=== PATIENT | female | born 1955 | race Caucasian/White ===

== ENCOUNTER 2016-05-03 20:04 | Emergency (ER) | payer BC ==
[~2016-05-03 20:04] MED LIST: ACID1TAB14 PO; ALBU2.5V13 NEB; AMIT50TA PO; ATOR10TA PO; CETI10TA16 PO; CETI10TA22 PO; DIPH1TAB PO; ESTR42.53 VG; EXEN2VIA SQ; FERR325T58 PO; FLUT1DIS3 IH; FOSF3PAC PO; LISI40TA PO; METF10002 PO; MONT10TA6 PO; MULT1TAB52 PO; OMEP40CA5 PO; PROAIR HFA8.5 GM IH; PROAIR HFA8.5 GM INH
[2016-05-03 20:37] VITALS: BP 147/62
[2016-05-03] MEDS ORDERED: PRED50TA PO (21:11)
--- NOTE | 2016-05-03 21:11 | PHYS DOC ---
Past Medical History Past Medical History: Asthma, Diabetes-Type II, High Cholesterol, Hypertension , UTI, Other Additional Past Medical Histor: interstitial cystitis Past Surgical History: Appendectomy, Hysterectomy, Tonsillectomy, Other Additional Past Surgical Histo: Bowel resection Alcohol Use: None Drug Use: None Adult General Chief Complaint Chief Complaint: COUGH HPI HPI Patient is a 60 year old female with complaint of nonproductive cough is been progressive in nature for the past 3 days. Patient denies any fevers or chills. She denies any ill contacts. She denies any hospitalizations, antibiotic use or foreign travel within the past 90 days. Patient states that she is a diabetic. She states that she has been having no problems with her blood sugar control at this point. Steroids to help as she often develops bronchitis after an upper respiratory infection. She states that she does have a nebulizer at home which she uses as she does have an established history of asthma as well. Review of Systems Review of Systems Constitutional: Denies fever or chills [] Eyes: Denies change in visual acuity, redness, or eye pain [] HENT: Denies nasal congestion or sore throat [] Respiratory: Denies cough or shortness of breath [] Cardiovascular: No additional information not addressed in HPI [] GI: Denies abdominal pain, nausea, vomiting, bloody stools or diarrhea [] : Denies dysuria or hematuria [] Musculoskeletal: Denies back pain or joint pain [] Integument: Denies rash or skin lesions [] Neurologic: Denies headache, focal weakness or sensory changes [] Endocrine: Denies polyuria or polydipsia [] Allergies Allergies Allergies Coded Allergies Type Severity Reaction Last Updated Verified I S O L A T I O N *CONTACT* Allergy Unknown 03/06/15 Yes No Known Medication Allergies Allergy Unknown 03/06/15 Yes Physical Exam Physical Exam Constitutional: Well developed, well nourished, no acute distress, non-toxic appearance. [] HENT: Normocephalic, atraumatic, bilateral external ears normal, oropharynx moist, no oral exudates. Scant amount of clear rhinorrhea with boggy nasal mucosa. Eyes: PERRLA, EOMI, conjunctiva normal, no discharge. [] Neck: Normal range of motion, no tenderness, supple, no stridor. [] Cardiovascular:Heart rate regular rhythm, no murmur [] Lungs & Thorax: Patient represents no respiratory distress respiratory fatigue. Patient has full chest excursion with deep inspiration. There is no sensory muscle use. Lungs are clear to auscultation bilaterally. Abdomen: Bowel sounds normal, soft, no tenderness, no masses, no pulsatile masses. [] Skin: Warm, dry, no erythema, no rash. [] Back: No tenderness, no CVA tenderness. [] Extremities: No tenderness, no cyanosis, no clubbing, ROM intact, no edema. [] Neurologic: Alert and oriented X 3, normal motor function, normal sensory function, no focal deficits noted. [] Psychologic: Affect normal, judgement normal, mood normal. [] Current Patient Data Vital Signs Vital Signs Date Time Temp Pulse Resp B/P Pulse Ox O2 Delivery O2 Flow Rate FiO2 05/03/16 20:37 98.3 99 20 100 Room Air 98.3 EKG EKG [] Radiology/Procedures Radiology/Procedures [] Course & Med Decision Making Course & Med Decision Making Pertinent Labs and Imaging studies reviewed. (See chart for details) [] Dragon Disclaimer Dragon Disclaimer This electronic medical record was generated, in whole or in part, using a voice recognition dictation system. Departure Departure Impression: Primary Impression: Upper respiratory infection Disposition: 01 HOME, SELF-CARE Condition: GOOD Referrals: [facility] (PCP) Patient Instructions: Upper Respiratory Infection, Adult, [id number] Additional Instructions: 1. Take the medication as prescribed. 2. Use your nebulizer at home as needed to for shortness of breath and chest tightness. 3. Call your primary care doctor in the morning to schedule follow-up appointment. 4. Please review the discharge instructions for reasons to return to the emergency department. Scripts Prednisone 50 Mg [id number] Mg PO DAILY 5 Days Prov:JEFE HUTCHINS 05/03/16 JEFE HUTCHINS May 03, 2016 21:11
== END 2016-05-03 21:19 | disposition home or self-care (01) ==
LOC: ER 20:04
DX: J06.9 Acute upper respiratory infection, unspecified (principal); J45.909 Unspecified asthma, uncomplicated; E11.9 Type 2 diabetes mellitus without complications; E78.00 Pure hypercholesterolemia, unspecified; I10 Essential (primary) hypertension; Z91.041 Radiographic dye allergy status
CPT/HCPCS: 99283

== ENCOUNTER → 2016-05-21 | Outpatient (CLI) | payer BC ==
[2016-05-03 20:37] VITALS: BP 147/62
[~2016-05-21] MED LIST changes: +IOHEXOL 180 MG/ML 10 ML VIAL. ONE; +PRED50TA PO; +TIZA4TAB PO; +methylPREDNISolone ACETATE 40 MG/ML VIAL. ONE; +methylPREDNISolone ACETATE 80 MG/ML VIAL. ONE
--- NOTE | 2016-05-21 23:44 | PAIN ---
DATE OF SERVICE: 05/21/2016 DIAGNOSES: Lumbar radiculopathy with lumbar degenerative disk disease and lumbar spinal stenosis. HISTORY OF PRESENT ILLNESS: This is a 60-year-old female who returns for followup status post lumbar epidural steroid injections x 3, last seen in January 2016. The patient did very well with this, with about 90% improvement initially and overall about 50% improvement group home. The patient reports that she is still doing well, good 50% improvement with the pain is returning to some extent in the low back and right lower extremity as it was previously. The patient reports it comes and goes, is dull, aching with sharp pains occasionally with radiating pain in the right posterior lateral thigh, lateral anterior thigh and in the posterior lower leg on the right side as well as across the low back. 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 The patient reports she is sleeping well at night without significant sleep interruption from the pain. The patient reports no new motor or sensory deficits, no new bowel or bladder incontinence or other complaints. PHYSICAL EXAMINATION: VITAL SIGNS: Today, the patient's blood pressure is 111/65, pulse 94, respirations 20, temperature 97.9 degrees Fahrenheit, weight is 204 pounds. GENERAL: The patient is awake, alert, oriented, appropriate, very pleasant demeanor. HEENT: Shows normocephalic, atraumatic. Extraocular movements are intact and symmetrical. The patient wears eye glasses. Oral cavity, mucous membranes are moist and pink. Dentition is intact. NECK: Shows anterior throat supple without palpable lymphadenopathy noted. Swallow reflex is symmetrical. Neck shows full rotational motion of the cervical spine without difficulty. CHEST: Shows normal on inspection. Breath sounds are clear to auscultation bilaterally. HEART: Shows S1 and S2 clear. ABDOMEN: Soft, nontender, nondistended. No palpable organomegaly is noted. BACK: Shows spine grossly midline. Lumbar paraspinous musculature shows some moderate tenderness to palpation, but only in the inferior aspect of the lumbar paraspinous muscles diffusely and appears roughly symmetrical without evidence of atrophy or hypertrophy. No tenderness over the spinous processes. No tenderness over the sacrum or sacroiliac regions. The patient shows good rotational motion of lumbar spine, both laterally greater than 10 degrees right and left as well as extension greater than 10 degrees, forward flexion to 45 degrees without difficulty. EXTREMITIES: The patient's lower extremities showed deep tendon reflexes at 2+ in the patellar tendons, 1+ tendo calcaneus tendons are equal. Motor exam is strong with 5/5 dorsiflexion, extension, quadriceps and hamstring flexion and symmetrical. Options were discussed with the patient and the patient's old chart was reviewed as her current medication regimen updated. Current review of systems updated today as well. We will plan on a lumbar epidural steroid injection today. She has done very well with these in the past as the first in this series with fluoroscopic guidance. Risks were again discussed including, but not limited to bleeding, infection, possibility of epidural hematoma, subsequent neurologic compromise, dural puncture, headaches, spinal cord and/or nerve damage, side effects of steroid medication and poor results regarding pain control. The patient understands and wishes to proceed. The patient will return to clinic in approximately 2 weeks for followup, was counseled on return appointment, activity level and side effects to be aware of. The patient was also given tizanidine prescription as she does well with this muscle relaxer with instructions, side effects to be aware of discussed as well. DIAGNOSIS: Lumbar radiculopathy with lumbar spinal stenosis, lumbar degenerative disk disease. PROCEDURE: Lumbar epidural steroid injection in translaminar approach at L4-L5 level using C-arm fluoroscopic guidance under sterile prep and drape using local anesthetic. Medications injected 120 mg Depo-Medrol plus 10 mL of preservative-free normal saline and 2 mL of Isovue for contrast. Condition at discharge is stable. The patient tolerated the procedure well, had no complications. AMERICA ELAM MD DR: MYRA/oxana JOB#: [id number] / [id number]
== END ==
LOC: PNCL 08:27
PROVIDERS: ATTEND Anesthesiology
DX: M51.16 Intervertebral disc disorders with radiculopathy, lumbar region (principal); M48.06 Spinal stenosis, lumbar region
CPT/HCPCS: 62323; J1030; J1040

== ENCOUNTER 2016-10-09 02:03 | Emergency (ER) | payer BC ==
[~2016-10-09] VITALS: Ht 170.2 cm; Wt 99.8 kg
[2016-10-09 02:03] VITALS: BP 126/56
[~2016-10-09 02:03] MED LIST changes: -ALBU2.5V13 NEB; +ALBU2.5V14 NEB; -IOHEXOL 180 MG/ML 10 ML VIAL. ONE; +METF-620 PO; -METF10002 PO; -methylPREDNISolone ACETATE 40 MG/ML VIAL. ONE; -methylPREDNISolone ACETATE 80 MG/ML VIAL. ONE
[2016-10-09 02:30] LABS: BILIRUBIN,URINE NEGATIVE (NEG); GLUCOSE,URINE NEGATIVE (NEG); NITRITE,URINE NEGATIVE (NEG); PH,URINE 5.5; PROTEIN,URINE 30 mg/dL (NEG-TRACE); UROBILINOGEN,URINE 0.2 mg/dL (0.2 mg/dL)
[2016-10-09] MEDS ORDERED: IV NORMAL SALINE 1000ML BAG 1,000 ML IV ONE (02:30)
[2016-10-09 02:35] LABS: BACTERIA,URINE FEW /HPF (0-FEW); RBC,URINE OCC /HPF (0-2); SQUAMOUS EPITHELIAL CELL,UR MOD /LPF
[2016-10-09 02:42] LABS: BASO # 0.1 x10^3/uL (0.0-0.2); BASO % 1 % (0-3); EOS % 9 % (0-3); HEMATOCRIT 29.4 % (36.0-47.0); HEMOGLOBIN 9.2 g/dL (12.0-15.5); LYMPH % 22 % (24-48); MEAN CORPUSCULAR HEMOGLOBIN 24 pg (25-35); MEAN CORPUSCULAR HGB CONC 31 g/dL (31-37); MEAN CORPUSCULAR VOLUME 77 fL (79-100); MONO % 11 % (0-9); NEUT % 58 % (31-73); PLATELET COUNT 328 x10^3/uL (140-400); RED CELL DISTRIBUTION WIDTH 15.9 % (11.5-14.5); WHITE BLOOD COUNT 9.1 x10^3/uL (4.0-11.0)
[2016-10-09 02:53] LABS: CALCIUM 8.6 mg/dL (8.5-10.1); CREATININE 1.7 mg/dL (0.6-1.0); GFR 30.7
[2016-10-09 03:02] LABS: ALBUMIN 3.7 g/dL (3.4-5.0); DIRECT BILIRUBIN 0.1 mg/dL (0.0-0.2); TOTAL BILIRUBIN 0.2 mg/dL (0.2-1.0); TOTAL PROTEIN 7.1 g/dL (6.4-8.2)
[2016-10-09] MEDS ORDERED: LOPE2CAP PO (03:29)
--- NOTE | 2016-10-09 03:29 | PHYS DOC ---
Past Medical History Past Medical History: Asthma, Diabetes-Type II, High Cholesterol, Hypertension , UTI, Other Additional Past Medical Histor: interstitial cystitis Past Surgical History: Appendectomy, Hysterectomy, Tonsillectomy, Other Additional Past Surgical Histo: Bowel resection Alcohol Use: None Drug Use: None Adult General Chief Complaint Chief Complaint: DIARRHEA HPI HPI 61-year-old female presenting to the emergency department today with diarrhea. She also reports having cramps in her thigh and her legs. Her diarrhea is been present for the last few days. She started eating sugar-free/sugar substitute foods recently and feels that this is likely a strong contributor. She reports this to be an acute on chronic problem where she has intermittent diarrhea. She denies abdominal pain nausea vomiting fevers or chills. She denies blood in her stool. Review of systems is negative for chest pain shortness of breath. Negative for nausea or vomiting. All other review of systems is negative unless otherwise noted in history of present illness. Pertinent physical exam findings: Abdomen is soft and nontender. Otherwise unremarkable exam. ED course: 61-year-old female presenting to the emergency department today with watery diarrhea. Patient was mildly tachycardic likely secondary to dehydration. She was given 1 L of normal saline in the ER. Labs were obtained which showed a chronic anemia. She did have a mild acute kidney injury prerenal. Likely secondary to dehydration. She was able to tolerate oral intake in the emergency department. I recommended she push fluids at home and I prescribed her loperamide for diarrhea control. I recommended she stay off the sugar substitute foods until her diarrhea resolves. The patient was then discharged home in stable condition to follow up with their primary care physician over the next 2-3 days. They were to return if their symptoms worsened or if they were concerned for any reason. [id number] discharge instructions and return precautions were given. Patient's questions were answered to their satisfaction. Patient is comfortable plan. Review of Systems Review of Systems SEE ABOVE. Current Medications Current Medications Current Medications Medications (Trade) Dose Ordered Sig/Danny Start Time Stop Time Status Last Admin Dose Admin Sodium Chloride 1,000 ml @ 1,000 mls/hr 1X ONCE 10/09/16 02:30 10/09/16 03:29 DC 10/09/16 02:27 1,000 MLS/HR Allergies Allergies Allergies Coded Allergies Type Severity Reaction Last Updated Verified I S O L A T I O N *CONTACT* Allergy Unknown 03/06/15 Yes No Known Medication Allergies Allergy Unknown 03/06/15 Yes Physical Exam Physical Exam Constitutional: Well developed, well nourished, no acute distress, non-toxic appearance. [] HENT: Normocephalic, atraumatic, bilateral external ears normal, oropharynx moist, no oral exudates, nose normal. [] Eyes: PERRLA, EOMI, conjunctiva normal, no discharge. [] Neck: Normal range of motion, no tenderness, supple, no stridor. [] Cardiovascular:Heart rate regular rhythm, no murmur [] Lungs & Thorax: Bilateral breath sounds clear to auscultation [] Abdomen: Bowel sounds normal, soft, no tenderness, no masses, no pulsatile masses. [] Skin: Warm, dry, no erythema, no rash. [] Back: No tenderness, no CVA tenderness. [] Extremities: No tenderness, no cyanosis, no clubbing, ROM intact, no edema. [] Neurologic: Alert and oriented X 3, normal motor function, normal sensory function, no focal deficits noted. [] Psychologic: Affect normal, judgement normal, mood normal. [] Current Patient Data Vital Signs Vital Signs Date Time Temp Pulse Resp B/P (MAP) Pulse Ox O2 Delivery O2 Flow Rate FiO2 10/09/16 02:03 98.0 96 20 126/56 (79) 95 Room Air 98.0 Lab Values Laboratory Tests Test 10/09/16 02:24 10/09/16 02:35 Urine Collection Type Unknown Urine Color Yellow Urine Clarity Cloudy Urine pH 5.5 Urine Specific [place] 1.020 Urine Protein 30 mg/dL (NEG-TRACE) Urine Glucose (UA) Negative mg/dL (NEG) Urine Ketones (Stick) Negative mg/dL (NEG) Urine Blood Negative (NEG) Urine Nitrite Negative (NEG) Urine Bilirubin Negative (NEG) Urine Urobilinogen Dipstick 0.2 mg/dL (0.2 mg/dL) Urine Leukocyte Esterase Negative (NEG) Urine RBC Occ /HPF (0-2) Urine WBC 5-10 /HPF (0-4) Urine Squamous Epithelial Cells Mod /LPF Urine Bacteria Few /HPF (0-FEW) Urine Mucus Marked /LPF White Blood Count 9.1 x10^3/uL (4.0-11.0) Red Blood Count 3.80 x10^6/uL (3.50-5.40) Hemoglobin 9.2 g/dL (12.0-15.5) L Hematocrit 29.4 % (36.0-47.0) L Mean Corpuscular Volume 77 fL (79-100) L Mean Corpuscular Hemoglobin 24 pg (25-35) L Mean Corpuscular Hemoglobin Concent 31 g/dL (31-37) Red Cell Distribution Width 15.9 % (11.5-14.5) H Platelet Count 328 x10^3/uL (140-400) Neutrophils (%) (Auto) 58 % (31-73) Lymphocytes (%) (Auto) 22 % (24-48) L Monocytes (%) (Auto) 11 % (0-9) H Eosinophils (%) (Auto) 9 % (0-3) H Basophils (%) (Auto) 1 % (0-3) Neutrophils # (Auto) 5.2 x10^3uL (1.8-7.7) Lymphocytes # (Auto) 2.0 x10^3/uL (1.0-4.8) Monocytes # (Auto) 1.0 x10^3/uL (0.0-1.1) Eosinophils # (Auto) 0.8 x10^3/uL (0.0-0.7) H Basophils # (Auto) 0.1 x10^3/uL (0.0-0.2) Sodium Level 142 mmol/L (136-145) Potassium Level 4.0 mmol/L (3.5-5.1) Chloride Level 107 mmol/L (98-107) Carbon Dioxide Level 24 mmol/L (21-32) Anion Gap 11 (6-14) Blood Urea Nitrogen 32 mg/dL (7-20) H Creatinine 1.7 mg/dL (0.6-1.0) H Estimated GFR (Cockcroft-Gault) 30.7 Glucose Level 104 mg/dL (70-99) H Calcium Level 8.6 mg/dL (8.5-10.1) Total Bilirubin 0.2 mg/dL (0.2-1.0) Direct Bilirubin 0.1 mg/dL (0.0-0.2) Aspartate Amino Transferase (AST) 17 U/L (15-37) Alanine Aminotransferase (ALT) 29 U/L (14-59) Alkaline Phosphatase 101 U/L (46-116) Total Protein 7.1 g/dL (6.4-8.2) Albumin 3.7 g/dL (3.4-5.0) Lipase 278 U/L (73-393) Laboratory Tests 10/09/16 02:35 Laboratory Tests 10/09/16 02:35 EKG EKG [] Radiology/Procedures Radiology/Procedures [] Course & Med Decision Making Course & Med Decision Making Pertinent Labs and Imaging studies reviewed. (See chart for details) [] Dragon Disclaimer Dragon Disclaimer This electronic medical record was generated, in whole or in part, using a voice recognition dictation system. Departure Departure Impression: Primary Impression: Diarrhea Additional Impression: JOE (acute kidney injury) Disposition: HOME, SELF-CARE Condition: STABLE Referrals: [facility] (PCP) Patient Instructions: Acute Kidney Injury, Diarrhea Additional Instructions: Thank you for allowing us to participate in your care today. Be sure to drink lots of water. take the diarrhea medication as needed. Followup with your primary care physician in 3 days if your symptoms do not improve. If you do not have a primary care provider you can ask for a list of our primary care providers. Return to the emergency department you have any new or concerning findings. This should be evaluated by the primary care physician and any necessary consulting services for continued management within a few days after discharge. Return to emergency room if you have any new or concerning symptoms including but not limited to fever, chills, nausea, vomiting, intractable pain, any new rashes, chest pain, shortness of air, uncontrolled bleeding, difficulty breathing, and/or vision loss. Scripts Loperamide Hcl (LOPERAMIDE) 2 Mg Capsule 2 MG PO PRN BID Y for DIARRHEA, #5 Be careful, this medication may cause you to be tired or drowsy. Do not drive on this medication. It may cause you to be tired as well. Prov: CHRISTIE WELCH MD 10/09/16 Problem Qualifiers CHRISTIE WELCH MD Oct 09, 2016 03:29
== END 2016-10-09 04:08 | disposition home or self-care (01) ==
LOC: ER 02:03
DX: R19.7 Diarrhea, unspecified (principal); N17.9 Acute kidney failure, unspecified; D53.9 Nutritional anemia, unspecified; R25.2 Cramp and spasm; E86.0 Dehydration; J45.909 Unspecified asthma, uncomplicated; E11.9 Type 2 diabetes mellitus without complications; E78.00 Pure hypercholesterolemia, unspecified; I10 Essential (primary) hypertension; Z87.440 Personal history of urinary (tract) infections; Z90.49 Acquired absence of other specified parts of digestive tract; Z90.710 Acquired absence of both cervix and uterus; Z90.89 Acquired absence of other organs; Z91.041 Radiographic dye allergy status
CPT/HCPCS: 36415; 80048; 80076; 81001; 83690; 85027; 87086; 96360; 96361; 99285; J7030

== ENCOUNTER → 2016-12-01 | Outpatient (CLI) | payer BC ==
[~2016-12-01] MED LIST changes: +LOPE2CAP PO
--- NOTE | 2016-12-01 09:59 | PAIN ---
DATE OF SERVICE: 12/01/2016 PROGRESS NOTE FOR PAIN CLINIC DIAGNOSES: Lumbar radiculopathy with lumbar degenerative disk disease and lumbar spinal stenosis. HISTORY OF PRESENT ILLNESS: The patient is a 61-year-old female who returns for followup status post lumbar epidural steroid injection, last seen 05/21/2016. The patient had injections last fall as well and last summer. The patient reports she did very well with 98% improvement. The pain has been fairly well today. She is having some pain in the low back and right lower extremity, again radiating to the right posterior lateral and anterior thigh into the lower leg medial aspect and posterior aspect of the right leg. Rates 8 on a scale of 10 as its worst. The patient reports that the Zanaflex she is taking, however, controls the pain almost completely. She has been taking it just at night, but has been doing very well with this regimen. The patient reports that she has been trying to increase her activity, stretching and strengthening. Reports the pain is becoming a little more noticeable, but very well controlled. She is out of her Zanaflex, which we prescribed for her in May and would like to continue with this as she does very well with it. The patient reports her pain is 8 on a scale of 10, it is burning, cramping, sharp, on and off and radiating into the right leg as noted, but not consistently. The patient reports she sleeps well at night. It does not awake her from sleep, better with sitting or lying, but walking is what really bothers her low back and her right leg. The patient reports no new motor or sensory deficits, no new bowel or bladder incontinence. PHYSICAL EXAMINATION: VITAL SIGNS: The patient's blood pressure is 143/80, pulse 98, respirations 18, temperature 98.2 degrees Fahrenheit, height is 5 feet 7 inches, weight is 120 pounds. GENERAL: The patient is awake, alert, oriented, appropriate, very pleasant demeanor. HEENT: Head shows normocephalic, atraumatic. Extraocular movements are intact, symmetrical. Oral cavity, mucous membranes are moist and pink. NECK: Shows anterior throat supple. CHEST: Shows breath sounds clear to auscultation bilaterally. HEART: Shows S1 and S2 clear. No murmurs auscultated. ABDOMEN: Obese, soft, nontender, nondistended. No palpable organomegaly is noted. No rebound or guarding. BACK: Shows spine grossly in the midline. Lumbar paraspinous musculature shows some moderate tenderness with palpation, but is symmetrical on inspection. No radiation of pain, no tenderness over the sacrum or sacroiliac regions. The patient shows good rotation and motion both laterally as well as extension and flexion without difficulty or pain reported. EXTREMITIES: Lower extremities show deep tendon reflexes 2+ in the patellar tendons, 1+ tendo calcaneus tendons are equal. Motor exam is strong with 5/5 dorsiflexion, extension, quadriceps and hamstring flexion and symmetrical. Options were discussed with the patient at this time. The patient's old chart was reviewed as her current medication regimen updated. Current review of systems updated today as well. We will refill the patient's Zanaflex with instructions, side effects to be aware of discussed. Also, the patient will increase her activity. We also discussed water therapy as she has access to a swimming pool at her daughter's house and will start using this as well. We discussed some physical therapy regimens to do in the water itself. She will try this as well. We discussed also if the pain becomes worse or not well controlled with the Zanaflex as it currently is, to contact our office and we will look into this further, perhaps do a new MRI scan as hers is over a year old now and does have a significant cyst at the L4-5 level with impingement on the right L5 nerve root, to see if this has gotten worse as well. We will dictate this with symptoms and the patient will follow up at this time on as needed basis. The patient was given instruction as well as side effects to be aware of with the medication. AMERICA ELAM MD DR: MYRA/oxana JOB#: [id number] / [id number]
== END | disposition home or self-care (01) ==
LOC: PNCL 07:38
PROVIDERS: ATTEND Anesthesiology
DX: M54.16 Radiculopathy, lumbar region (principal); M48.06 Spinal stenosis, lumbar region; M51.36 Other intervertebral disc degeneration, lumbar region
CPT/HCPCS: 99212

== ENCOUNTER → 2017-04-20 | Outpatient (CLI) | payer BC ==
[2017-03-07 22:23] VITALS: BP 186/84
[~2017-04-20] MED LIST changes: +MONT10TA9 PO; +PRED20TA PO; +tylenol pm
--- NOTE | 2017-04-20 09:22 | PAIN ---
DATE OF SERVICE: 04/20/2017 PROGRESS NOTE FOR PAIN CLINIC: DIAGNOSES: 1. Lumbar radiculopathy with lumbar degenerative disk disease and lumbar spinal stenosis. 2. Left shoulder pain. HISTORY OF PRESENT ILLNESS: The patient is a 61-year-old female who returns for followup status post lumbar epidural steroid injection with about 90% improvement still carrying through with good pain relief in her low back and right lower extremity. The patient reports her main chief complaint today is that her left shoulder is causing some significant pain for about a week. She woke up and had some significant pain in the base of the shoulder, base of the neck, posterior shoulder, posterior upper back radiating into her arm, occasionally into her forearm as well. The patient reports that each day it has gotten better. She has more mobility now than she did a week ago, but it is definitely a new pain. The patient reports that the pain is about a 10 on a scale of 10 at its worst, 7 on average and was an 8 at its least and it is 7 today. The patient reports it is radiating, constant, becoming unbearable, dull and tight, but again has been getting better over the past week or so. The patient reports no injuries and just woke up this way. She feels she may need a new mattress and she is looking for one this weekend. The patient reports otherwise doing very well with her low back and right leg about 90% improvement. She has been doing increased walking, working without difficulty, household activities without difficulty as well, sleeping better at night except for the shoulder pain. The patient reports no weakness in the left shoulder or loss of ability to hold items or dropping things, but just the pain that is radiating into her upper arm and occasionally into the lateral forearm. PHYSICAL EXAMINATION: VITAL SIGNS: The patient's blood pressure is 156/71, pulse 90, respirations 16, temperature 98.0 degrees Fahrenheit, height is 5 feet 7 inches and weight is 229 pounds. GENERAL: The patient is awake, alert, oriented, appropriate and very pleasant demeanor. HEENT: Shows normocephalic and atraumatic. Extraocular movements are intact and symmetrical. Oral cavity: Mucous membranes are moist and pink. Dentition is intact. NECK: Shows anterior throat supple without palpable lymphadenopathy noted. Swallow reflex symmetrical. CHEST: Shows normal with inspection. Breath sounds are clear to auscultation bilaterally. HEART: Shows S1 and S2 clear. No murmurs auscultated. ABDOMEN: Soft, nontender and nondistended. No palpable organomegaly is noted. No rebound or guarding demonstrated. MUSCULOSKELETAL: Back shows spine grossly in the midline with a normal appearing thoracic kyphosis and lumbar lordotic curvature. Lumbar paraspinous muscle shows only some mild tenderness with palpation bilaterally, but only diffusely. The patient shows good rotational motion of lumbar spine. Lower extremities show deep tendon 2+ in the patellar, 1+ tendo calcaneus tendons are equal. Motor exam is strong with 5/5 dorsiflexion, extension, quadriceps and hamstring flexion. Peripheral pulses are 1+ posterior tibia. No peripheral edema is noted bilaterally. Upper extremities show deep tendon reflexes at 2+ in the biceps and triceps tendons. Motor exam is strong with malt loader strength rated 5/5 as is bicep and tricep flexion. Peripheral pulses are 2+ radial distribution. The patient's shoulders show left shoulder good rotational motion with good abduction, strong abduction, adduction as well as anterior and posterior rotation of motion both voluntarily and passively. The patient has no difficulty with rotational motion of the left shoulder at all. With examination of the patient's posterior shoulder and cervical trapezius shows some moderate tenderness with some very firm rope-like musculature in the trapezius itself and the superior aspect of the suprascapular musculature, but without specific radiation. Right side is nontender without any trigger point findings. Options were discussed with the patient. The patient's old chart was reviewed as her current medication regimen and updated. Current review of systems updated today as well and we will hold on any injections at this time. Encouraged the patient to increase stretching and strengthening exercises with the left shoulder as it is beginning to get better each day. Heat application as well and some massage techniques. I showed her some exercises to do as well and stretching. The patient will follow up in approximately 1-2 weeks if not significantly improved. We did discuss possible trigger point injections in the future also to the patient's back and maintain activity, stretching and strengthening exercises and walking activity and as tolerated as well. The patient will follow up at this time on as needed basis. The patient was given a refill for Zanaflex with instructions and side effects to be aware of. AMERICA ELAM MD DR: Ingrid JOB#: [id number] / [id number]
== END | disposition home or self-care (01) ==
LOC: PNCL 07:49
PROVIDERS: ATTEND Anesthesiology
DX: M51.16 Intervertebral disc disorders with radiculopathy, lumbar region (principal); M48.061 Spinal stenosis, lumbar region without neurogenic claudication; M25.512 Pain in left shoulder
CPT/HCPCS: 99212

== ENCOUNTER → 2017-04-28 | Outpatient (CLI) | payer BC ==
[~2017-04-28] MED LIST changes: -ACID1TAB14 PO; -ALBU2.5V14 NEB; -AMIT50TA PO; -ATOR10TA PO; +BUPIVACAINE MPF 0.25% 10 ML VIAL.; -CETI10TA16 PO; -CETI10TA22 PO; -DIPH1TAB PO; -ESTR42.53 VG; -EXEN2VIA SQ; -FERR325T58 PO; -FLUT1DIS3 IH; -FOSF3PAC PO; -LISI40TA PO; -LOPE2CAP PO; -METF-620 PO; -MONT10TA6 PO; -MONT10TA9 PO; -MULT1TAB52 PO; -OMEP40CA5 PO; -PRED20TA PO; -PRED50TA PO; -PROAIR HFA8.5 GM IH; -PROAIR HFA8.5 GM INH; -TIZA4TAB PO; +methylPREDNISolone ACETATE 40 MG/ML VIAL.; -tylenol pm
== END | disposition home or self-care (01) ==
LOC: PNCL 07:37
DX: M79.1 Myalgia (principal); M51.16 Intervertebral disc disorders with radiculopathy, lumbar region; M48.061 Spinal stenosis, lumbar region without neurogenic claudication; E78.00 Pure hypercholesterolemia, unspecified; I10 Essential (primary) hypertension; J45.909 Unspecified asthma, uncomplicated; E66.9 Obesity, unspecified; E11.9 Type 2 diabetes mellitus without complications; M19.90 Unspecified osteoarthritis, unspecified site; D64.9 Anemia, unspecified; Z87.39 Personal history of other diseases of the musculoskeletal system and connective tissue
CPT/HCPCS: 20552; 20553; J1030; J3490

== ENCOUNTER → 2017-05-11 | Outpatient (CLI) | payer BC | END | disposition home or self-care (01) | LOC: PNCL 07:32 | DX: M79.1 Myalgia (principal); M51.16 Intervertebral disc disorders with radiculopathy, lumbar region; M48.061 Spinal stenosis, lumbar region without neurogenic claudication | CPT/HCPCS: 20552; J1030; J3490 ==

== ENCOUNTER 2017-10-18 17:19 | Emergency (ER) | payer BC | END 2017-10-18 18:07 | disposition home or self-care (01) | LOC: ER 17:19 | DX: J01.90 Acute sinusitis, unspecified (principal); J45.909 Unspecified asthma, uncomplicated; E11.9 Type 2 diabetes mellitus without complications; E78.00 Pure hypercholesterolemia, unspecified; I10 Essential (primary) hypertension; Z87.440 Personal history of urinary (tract) infections; Z91.041 Radiographic dye allergy status | CPT/HCPCS: 99283 ==

== ENCOUNTER → 2017-10-25 | Outpatient (CLI) | payer BC ==
[~2017-10-25] MED LIST changes: -BUPIVACAINE MPF 0.25% 10 ML VIAL.; +BUPIVACAINE MPF 0.25% 30 ML VIAL.
== END | disposition home or self-care (01) ==
LOC: PNCL 14:07
DX: M79.1 Myalgia (principal); M51.16 Intervertebral disc disorders with radiculopathy, lumbar region; M48.061 Spinal stenosis, lumbar region without neurogenic claudication; Z88.8 Allergy status to other drugs, medicaments and biological substances
CPT/HCPCS: 20553; J1030; J3490

== ENCOUNTER → 2017-11-04 | Outpatient (CLI) | payer BC ==
[~2017-11-04] MED LIST changes: +BUPIVACAINE MPF 0.25% 10 ML VIAL.; -BUPIVACAINE MPF 0.25% 30 ML VIAL.
== END | disposition home or self-care (01) ==
LOC: PNCL 07:42
DX: M79.1 Myalgia (principal); M51.16 Intervertebral disc disorders with radiculopathy, lumbar region; M48.061 Spinal stenosis, lumbar region without neurogenic claudication; M25.512 Pain in left shoulder; Z88.8 Allergy status to other drugs, medicaments and biological substances; E78.00 Pure hypercholesterolemia, unspecified; I10 Essential (primary) hypertension; J45.909 Unspecified asthma, uncomplicated; Z86.010 Personal history of colon polyps; E66.9 Obesity, unspecified; Z90.49 Acquired absence of other specified parts of digestive tract; K21.9 Gastro-esophageal reflux disease without esophagitis; Z98.890 Other specified postprocedural states; Z90.710 Acquired absence of both cervix and uterus; Z87.440 Personal history of urinary (tract) infections; Z96.653 Presence of artificial knee joint, bilateral; M17.0 Bilateral primary osteoarthritis of knee; E11.9 Type 2 diabetes mellitus without complications; D64.9 Anemia, unspecified; Z79.84 Long term (current) use of oral hypoglycemic drugs
CPT/HCPCS: 20553; J1030; J3490

== ENCOUNTER → 2017-11-11 | Outpatient (CLI) | payer BC | END | disposition home or self-care (01) | LOC: PNCL 08:54 | DX: M51.16 Intervertebral disc disorders with radiculopathy, lumbar region (principal); M48.061 Spinal stenosis, lumbar region without neurogenic claudication; M25.512 Pain in left shoulder; M79.1 Myalgia; I12.9 Hypertensive chronic kidney disease with stage 1 through stage 4 chronic kidney disease, or unspecified chronic kidney disease; E11.22 Type 2 diabetes mellitus with diabetic chronic kidney disease; N18.9 Chronic kidney disease, unspecified; E78.5 Hyperlipidemia, unspecified; E78.00 Pure hypercholesterolemia, unspecified; J45.909 Unspecified asthma, uncomplicated; D50.9 Iron deficiency anemia, unspecified | CPT/HCPCS: 99212 ==

== ENCOUNTER 2017-11-13 00:40 | Inpatient (IN) | payer BC ==
[2017-11-13] MEDS: IV NORMAL SALINE 1000ML BAG 1,000 ML IV (01:00)
[2017-11-13] MEDS: NALOXONE 0.4 MG/ML VIAL. IV (01:00)
[2017-11-13 01:03] LABS: ADD MAN DIFF? NO
[2017-11-13 01:07] LABS: BASO # 0.1 x10^3/uL (0.0-0.2); BASO % 1 % (0-3); EOS # 0.3 x10^3/uL (0.0-0.7); EOS % 3 % (0-3); LYMPH # 1.7 x10^3/uL (1.0-4.8); LYMPH % 18 % (24-48); MEAN CORPUSCULAR HEMOGLOBIN 25 pg (25-35); MEAN CORPUSCULAR HGB CONC 32 g/dL (31-37); MEAN CORPUSCULAR VOLUME 80 fL (79-100); MONO # 0.5 x10^3/uL (0.0-1.1); MONO % 5 % (0-9); NEUT # 7.1 x10^3uL (1.8-7.7); NEUT % 74 % (31-73); PLATELET COUNT 342 x10^3/uL (140-400); RED BLOOD COUNT 2.19 x10^6/uL (3.50-5.40); WHITE BLOOD COUNT 9.7 x10^3/uL (4.0-11.0)
[2017-11-13 01:15] LABS: HEMATOCRIT 17.4 % (36.0-47.0); HEMOGLOBIN 5.5 g/dL (12.0-15.5)
[2017-11-13 01:17] LABS: ANION GAP 11 (6-14); BLOOD UREA NITROGEN 55 mg/dL (7-20); BUN/CREATININE RATIO 21 (6-20); CALCIUM 9.3 mg/dL (8.5-10.1); CARBON DIOXIDE 21 mmol/L (21-32); CHLORIDE 106 mmol/L (98-107); CREATININE 2.6 mg/dL (0.6-1.0); GFR 18.7; GLUCOSE 346 mg/dL (70-99); POTASSIUM 4.8 mmol/L (3.5-5.1); SODIUM 138 mmol/L (136-145)
[2017-11-13 01:22] LABS: ALK PHOS 51 U/L (46-116); ALT (SGPT) 17 U/L (14-59); AST (SGOT) 22 U/L (15-37); MAGNESIUM 1.5 mg/dL (1.8-2.4); TOTAL BILIRUBIN 0.1 mg/dL (0.2-1.0)
[2017-11-13] MEDS ORDERED: ONDANSETRON PF 4 MG/2 ML VIAL. IV (02:30)
[2017-11-13 04:46] LABS: POC GLUCOSE 141 mg/dL (70-99)
[2017-11-13 04:48] LABS: FECAL OB PT NEGATIVE (NEG); NEG OBC FOB NEG; POS OBC FOB POS
[2017-11-13 07:20] LABS: IMMEDIATE SPIN CROSSMATCH 1 2
[2017-11-13 08:31] LABS: POC GLUCOSE 95 mg/dL (70-99)
[2017-11-13] MEDS ORDERED: PNEUMOCOCCAL VAX SCREEN BY RX. MC (09:00)
[2017-11-13 11:08] LABS: POC GLUCOSE 106 mg/dL (70-99)
[2017-11-13 12:42] LABS: ADD MAN DIFF? NO
[2017-11-13 12:46] LABS: BASO % 0 % (0-3); EOS # 0.5 x10^3/uL (0.0-0.7); EOS % 4 % (0-3); HEMATOCRIT 27.1 % (36.0-47.0); LYMPH # 2.1 x10^3/uL (1.0-4.8); LYMPH % 17 % (24-48); MEAN CORPUSCULAR HEMOGLOBIN 27 pg (25-35); MEAN CORPUSCULAR HGB CONC 33 g/dL (31-37); MEAN CORPUSCULAR VOLUME 82 fL (79-100); MONO # 0.7 x10^3/uL (0.0-1.1); MONO % 6 % (0-9); NEUT # 8.8 x10^3uL (1.8-7.7); NEUT % 73 % (31-73); PLATELET COUNT 354 x10^3/uL (140-400); RED BLOOD COUNT 3.33 x10^6/uL (3.50-5.40); RED CELL DISTRIBUTION WIDTH 17.5 % (11.5-14.5); WHITE BLOOD COUNT 12.2 x10^3/uL (4.0-11.0)
[2017-11-13] MEDS: MULTIVITAMIN with MINERAL TABLET. PO (14:28)
[2017-11-13] MEDS: GABAPENTIN 100 MG CAPSULE. PO ×2 (14:28→21:14)
[2017-11-13] MEDS: PANTOPRAZOLE 40 MG TABLET.DR. PO (14:28)
[2017-11-13] MEDS: FERROUS SULFATE 325 MG TABLET. PO (14:28)
[2017-11-13] MEDS ORDERED: ALBUTEROL SULFATE 2.5 MG/3 ML NEBU. NEB (14:30)
[2017-11-13 15:08] LABS: BARBITURATES NEG (NEG); BENZODIAZEPINES NEG (NEG); CANNABINOIDS NEG (NEG); COCAINE NEG (NEG); METHADONE NEG (NEG); OPIATES NEG (NEG); PHENCYCLIDINE NEG (NEG)
[2017-11-13 15:10] LABS: AMPHETAMINE/METHAMPHETAMINE NEG (NEG); ETHANOL, URINE NEG (NEG)
[2017-11-13] MEDS: ACETAMINOPHEN 325 MG TABLET. PO (15:28)
[2017-11-13 15:40] LABS: BILIRUBIN,URINE NEGATIVE (NEG); CLARITY,URINE CLEAR; GLUCOSE,URINE 250 mg/dL (NEG); NITRITE,URINE POSITIVE (NEG); PH,URINE 5.5; PROTEIN,URINE NEGATIVE (NEG-TRACE); UROBILINOGEN,URINE 0.2 mg/dL (0.2 mg/dL)
[2017-11-13 15:56] LABS: COLOR,URINE STRAW
[2017-11-13 15:58] LABS: BACTERIA,URINE MANY /HPF (0-FEW); RBC,URINE RARE /HPF (0-2); SQUAMOUS EPITHELIAL CELL,UR MOD /LPF
[2017-11-13 16:55] LABS: POC GLUCOSE 90 mg/dL (70-99)
[2017-11-13] MEDS: CIPROFLOXACIN HCL 250 MG TABLET. PO (17:09)
[2017-11-13] MEDS: PNEUMOC CONJ VACC 23-VALENT 0.5 ML VIAL. VAX IM (17:11)
[2017-11-13 21:06] LABS: POC GLUCOSE 136 mg/dL (70-99)
[2017-11-13] MEDS: ATORVASTATIN CALCIUM 10 MG TABLET. PO (21:09)
[2017-11-13] MEDS: LACTOBACILLUS RHAMNOSUS GG 1 CAPSULE. PO (21:09)
[2017-11-13] MEDS: CETIRIZINE HCL 10 MG TABLET. PO (21:09)
[2017-11-13] MEDS: MONTELUKAST SODIUM 10 MG TABLET. PO (21:10)
[2017-11-13] MEDS: LISINOPRIL 20 MG TABLET PO (21:10)
[2017-11-13] MEDS: METOPROLOL TART IMMED RELEASE 50 MG TABLET. PO (21:11)
[2017-11-13] MEDS: tiZANidine 4 MG TABLET. PO (21:14)
[2017-11-14] MEDS: PANTOPRAZOLE 40 MG TABLET.DR. PO (06:33)
[2017-11-14 06:52] LABS: ADD MAN DIFF? NO
[2017-11-14 07:20] LABS: ANION GAP 9 (6-14); BLOOD UREA NITROGEN 32 mg/dL (7-20); CALCIUM 8.7 mg/dL (8.5-10.1); CARBON DIOXIDE 21 mmol/L (21-32); CHLORIDE 110 mmol/L (98-107); CREATININE 1.4 mg/dL (0.6-1.0); GFR 38.2; GLUCOSE 91 mg/dL (70-99); POTASSIUM 5.2 mmol/L (3.5-5.1); SODIUM 140 mmol/L (136-145)
[2017-11-14 07:29] LABS: BASO # 0.1 x10^3/uL (0.0-0.2); BASO % 1 % (0-3); EOS # 0.6 x10^3/uL (0.0-0.7); EOS % 6 % (0-3); HEMATOCRIT 27.9 % (36.0-47.0); HEMOGLOBIN 9.1 g/dL (12.0-15.5); LYMPH # 2.6 x10^3/uL (1.0-4.8); LYMPH % 25 % (24-48); MEAN CORPUSCULAR HEMOGLOBIN 27 pg (25-35); MEAN CORPUSCULAR HGB CONC 33 g/dL (31-37); MEAN CORPUSCULAR VOLUME 82 fL (79-100); MONO # 0.7 x10^3/uL (0.0-1.1); MONO % 7 % (0-9); NEUT # 6.5 x10^3uL (1.8-7.7); NEUT % 62 % (31-73); PLATELET COUNT 363 x10^3/uL (140-400); RED BLOOD COUNT 3.39 x10^6/uL (3.50-5.40); RED CELL DISTRIBUTION WIDTH 17.7 % (11.5-14.5); WHITE BLOOD COUNT 10.4 x10^3/uL (4.0-11.0)
[2017-11-14 07:49] LABS: POC GLUCOSE 92 mg/dL (70-99)
[2017-11-14] MEDS: FERROUS SULFATE 325 MG TABLET. PO ×2 (09:16→12:13)
[2017-11-14] MEDS: MULTIVITAMIN with MINERAL TABLET. PO (09:16)
[2017-11-14] MEDS: LACTOBACILLUS RHAMNOSUS GG 1 CAPSULE. PO (09:16)
[2017-11-14 09:28] LABS: % SAT IRON 19 % (15-34); IRON,SERUM 71 ug/dL (50-170)
[2017-11-14 09:43] LABS: FERRITIN 64 ng/mL (8-252)
[2017-11-14 10:09] LABS: RETIC COUNT 2.5 % (0.5-2.5)
[2017-11-14 11:41] LABS: POC GLUCOSE 137 mg/dL (70-99)
== END 2017-11-14 15:00 | disposition home or self-care (01) | DRG 812 ==
LOC: ER 00:40 → 5 NORTH 02:40
PROC: 30233N1 Transfusion of Nonautologous Red Blood Cells into Peripheral Vein, Percutaneous Approach (ICD-10-PCS; principal; 2017-11-13)
DX: D64.9 Anemia, unspecified (principal); E78.00 Pure hypercholesterolemia, unspecified; J45.909 Unspecified asthma, uncomplicated; G89.29 Other chronic pain; M19.012 Primary osteoarthritis, left shoulder; N18.9 Chronic kidney disease, unspecified; D50.9 Iron deficiency anemia, unspecified; E11.22 Type 2 diabetes mellitus with diabetic chronic kidney disease; E11.65 Type 2 diabetes mellitus with hyperglycemia; T38.3X6A Underdosing of insulin and oral hypoglycemic [antidiabetic] drugs, initial encounter; I12.9 Hypertensive chronic kidney disease with stage 1 through stage 4 chronic kidney disease, or unspecified chronic kidney disease; N30.10 Interstitial cystitis (chronic) without hematuria; Y92.89 Other specified places as the place of occurrence of the external cause; Z90.710 Acquired absence of both cervix and uterus; Z90.49 Acquired absence of other specified parts of digestive tract; Z23 Encounter for immunization; Z91.041 Radiographic dye allergy status; Z80.0 Family history of malignant neoplasm of digestive organs; Z82.49 Family history of ischemic heart disease and other diseases of the circulatory system
CPT/HCPCS: 36415; 71045; 80048; 80053; 80307; 81001; 82274; 82728; 82962; 83540; 83550; 83735; 85025; 85045; 86850; 86900; 86901; 86920; 87086; 90732; 93005; 96361; 96374; 97161-GP; 97165-GO; 99285; 99285-25; J2310; J7030; P9016

== ENCOUNTER 2019-11-30 19:05 | Emergency (ER) | payer OTHER ==
[~2019-11-30] VITALS: Ht 170.2 cm; Wt 83.1 kg
[~2019-11-30 19:05] MED LIST changes: +ACID1TAB14 PO; +ALBU2.5V14 NEB; +ALBU2.5V8 IH; +ALBU2.5V8 INH; +AMIT50TA PO; +AMOX1TAB61 PO; +ATOR10TA PO; +AZIT250T PO; -BUPIVACAINE MPF 0.25% 10 ML VIAL.; +CETI10TA16 PO; +CETI10TA24 PO; +CIPR250T30 PO; +DIPH1TAB PO; +ESTR42.53 VG; +EXEN2VIA SQ; +FERR325T58 PO; +FLUT1DIS3 IH; +FOSF3PAC PO; +GABA-585 PO; +LISI-130 PO; +LOPE2CAP PO; +METF10007 PO; +METO50TA6 PO; +MONT10TA49 PO; +MULT-445 PO; +OMEP40CA45 PO; +PRED20TA PO; +PRED50TA PO; +SULF1TAB24 PO; +TIZA4TAB2 PO; -methylPREDNISolone ACETATE 40 MG/ML VIAL.; +tylenol pm; +tylenol pm PO
--- NOTE | 2019-11-30 20:52 | PHYS DOC ---
Past Medical History Past Medical History: Asthma, Diabetes-Type II, High Cholesterol, Hypertension, UTI, Other Additional Past Medical Histor: interstitial cystitis Past Surgical History: Appendectomy, Hysterectomy, Tonsillectomy, Other Additional Past Surgical Histo: Bowel resection Smoking Status: Never Smoker Alcohol Use: None Drug Use: None General Adult EDM: Chief Complaint: COUGH HPI: HPI: 64-year-old female with underlying history of hypertension, asthma presents to the emergency department complaints of chest tightness. Patient states she has been previously diagnosed with COVID symptoms have improved and since that time. She states over the last week she is had some chest tightness she contacted her primary care physician, patient was provided with Augmentin at that time twice a day. She states intermittently she has been using her nebulizer treatment at home however tonight developed some chest tightness she did not have any steroids at home which is why she is here. Cough is present with some yellow sputum production. She denies any fever, nausea, vomiting. Nothing makes her symptoms worse, nothing makes her symptoms better. She is currently on [id number] Mucinex. Review of Systems: Review of Systems: Constitutional: Denies fever or chills. [] Respiratory: Cough/SOB Cardiovascular: Denies chest pain or edema. [] GI: Denies abdominal pain, nausea, vomiting, bloody stools or diarrhea. [] Musculoskeletal: Denies back pain or joint pain. [] Integument: Denies rash. [] Neurologic: Denies headache, focal weakness or sensory changes. [] Endocrine: Denies polyuria or polydipsia. [] Heart Score: Risk Factors: Risk Factors: DM, Current or recent (<one month) smoker, HTN, HLP, family history of CAD, obesity. Risk Scores: Score 0 - 3: 2.5% MACE over next 6 weeks - Discharge Home Score 4 - 6: 20.3% MACE over next 6 weeks - Admit for Clinical Observation Score 7 - 10: 72.7% MACE over next 6 weeks - Early Invasive Strategies Allergies: Allergies: Allergies Coded Allergies Type Severity Reaction Last Updated Verified I S O L A T I O N *CONTACT* Allergy Unknown 03/06/15 Yes No Known Medication Allergies Allergy Unknown 03/06/15 Yes Physical Exam: PE: Constitutional: Well developed, well nourished, no acute distress, non-toxic appearance. [] HENT: Normocephalic, atraumatic, bilateral external ears normal, oropharynx moist, no oral exudates, nose normal. [] Eyes: PERRLA, EOMI, conjunctiva normal, no discharge. [] Cardiovascular:Heart rate regular rhythm, no murmur [] Lungs & Thorax: Bilateral breath sounds clear to auscultation [] Abdomen: Bowel sounds normal, soft, no tenderness, no masses, no pulsatile masses. [] Skin: Warm, dry, no erythema, no rash. [] Back: No tenderness, no CVA tenderness. [] Extremities: No tenderness,no edema. [] Neurologic: Alert and oriented X 3, no focal deficits noted. [] Psychologic: Affect normal, judgement normal, mood normal. [] EKG: EKG: [] Radiology/Procedures: Radiology/Procedures: [] Course & Med Decision Making: Course & Med Decision Making Pertinent Labs and Imaging studies reviewed. (See chart for details) [] 64-year-old female with underlying history of hypertension, asthma presents to the emergency department complaints of chest tightness. Patient states she has been previously diagnosed with COVID symptoms have improved and since that time. She states over the last week she is had some chest tightness she contacted her primary care physician, patient was provided with Augmentin at that time twice a day. She states intermittently she has been using her nebulizer treatment at home however tonight developed some chest tightness she did not have any steroids at home which is why she is here. Cough is present with some yellow sputum production. She denies any fever, nausea, vomiting. Nothing makes her symptoms worse, nothing makes her symptoms better. She is currently on [id number] Mucinex. DuoNeb completed in the emergency department, prednisone 60 mg p.o. x1. Patient states she feels better after treatment will plan for discharge home. Discussed return precautions, patient voiced understanding. Petra Disclaimer: Petra Disclaimer: This electronic medical record was generated, in whole or in part, using a voice recognition dictation system. Departure Departure Impression: Primary Impression: Asthma exacerbation Qualified Codes: J45.901 - Unspecified asthma with (acute) exacerbation Disposition: HOME, SELF-CARE Condition: IMPROVED Referrals: PACO STILES NP (PCP) Patient Instructions: Asthma, Adult Scripts Methylprednisolone (MEDROL) 4 Mg Tab.ds.pk 1 PKG PO UD for inflammation, #1 PKG Prov: DEVONTE COATES MD 11/30/19 Justicifation of Admission Dx: Justifications for Admission: Justification of Admission Dx: N/A DEVONTE COATES MD Nov 30, 2019 20:52
[2019-11-30] MEDS ORDERED: IPRATRPIUM/ALBUTEROL 0.5/2.5MG 3 ML NEBU. NEB ONE (21:00)
[2019-11-30] MEDS ORDERED: predniSONE 20 MG TABLET PO ONE (21:00)
[2019-11-30 21:05] VITALS: BP 164/67
[2019-11-30] MEDS ORDERED: METH4TAB2 PO (21:52)
== END 2019-11-30 22:45 | disposition home or self-care (01) ==
LOC: ER 19:05
DX: J45.901 Unspecified asthma with (acute) exacerbation (principal); E11.9 Type 2 diabetes mellitus without complications; E78.00 Pure hypercholesterolemia, unspecified; I10 Essential (primary) hypertension; Z87.440 Personal history of urinary (tract) infections; Z91.041 Radiographic dye allergy status
CPT/HCPCS: 94640; 99283; J7512

== ENCOUNTER → 2020-06-17 | Outpatient (CLI) | payer BC, OTHER ==
[~2020-06-17] MED LIST changes: +BUPIVACAINE MPF 0.25% 10 ML VIAL. ONE; -CETI10TA24 PO; +CETI10TA74 PO; +COLE1TAB2 PO; -FOSF3PAC PO; +FOSF3PAC6 PO; +GABA100C6 PO; +METH4TAB2 PO; +OMEP20CA16 PO; +SEMA1PEN SQ; +ZOLP5TAB5 PO; +methylPREDNISolone ACETATE 40 MG/ML VIAL. ONE
--- NOTE | 2020-06-17 12:29 | PDOC ---
Progress Note - Pain Clinic Date of Service: DOS: DATE: 06/17/20 TIME: 12:23 Diagnosis: Dx: Cervical radiculopathy with cervical spinal stenosis and cervical degenerative disc disease Left shoulder joint pain Myofascial pain History or Present Illness: HPI: 64-year-old female returns for follow-up last seen October 2017. Patient reports she did very well after trigger point injections and reports that the pain is returning now she has had a very stressful month as her just about a month ago she has been having some pain prior to that as well in the base the neck especially in the left shoulder and upper back and neck. Patient reports the pain is getting worse she did very well with trigger point injections in 2018 and had similar symptoms today. Patient reports as she is having difficulty sleeping because of the pain as well as emotional stress but rates her pain is a 6 on scale 10 is worse over the past week for an average 3 at its least is a 4 today patient ports aching sharp dull on and off in intensit y worse with repetitive motions lifting items with her left arm upper extremities and especially difficulty with sleeping. Patient describes the pain as aching and sharp sometimes shooting as well greater on the right than the left into the right forearm. Physical Exam: VS: Blood pressure is 150/60 pulse 72 respirations 18 temperature 90.5 F height is 5 feet 7 inches weight is 174 pounds PE: PHYSICAL EXAMINATION: GENERAL: The patient is awake, alert, oriented, appropriate, very pleasant demeanor HEENT: Shows normocephalic, atraumatic. Extraocular movements are intact and sy mmetrical. Oral cavity: Mucous membranes moist and pink. Dentition is intact. NECK: Shows anterior throat supple without palpable lymphadenopathy noted. Swallow reflex symmetrical. CHEST: Shows normal on inspection. Breath sounds are clear bilaterally, no rales rhonchi or wheezes. HEART: Shows S1, S2 clear. No murmurs auscultated. ABDOMEN: Soft, nontender, nondistended, obese. No palpable organomegaly is noted. No rebound or guarding demonstrated. BACK: Shows spine grossly in the midline. Normal-appearing cervical lordotic curvature. Cervical paraspinous muscles show symmetrical with inspection on palpation some very firm ropelike musculature in the left paraspinous musculature in the middle to lower distribution very firm consistent with trigger point areas of musculature this is true into the superior medial trapezius on the left side as well as the supraspinatus musculature infraspinatus musculature as well as a thoracic paraspinous musculature and rhomboid muscles on the left side only right side is supple without significant tenderness or atrophy hypertrophy but significant trigger points on the left side as noted. No radiation demonstrated to each of the areas of trigger point musculature. There is slightly increased thoracic kyphosis, some minor flattening of the lumbar lordotic curvature. EXTREMITIES: Upper extremities show deep tendon reflexes 2+ in the biceps and t ricep tendons. Motor exam is 5 on a scale of 5 with right strength, biceps and triceps flexion and 5/5 on the left. Peripheral pulses are 2+ radial. No peripheral edema is noted bilaterally. Upper extremities are warm and dry to touch, equal in color and appearance. SKIN: Shows warm and dry, good turgor. No edema. No sores, rashes or bruising throughout. Procedure: Procedure: Options were discussed with the patient. Patient chart reviewed, answer review of systems and updated on patient's chart. We will proceed with trigger point injections of the identified musculature. Risk were discussed including but not limited to bleeding infection possibility of intravascular injection sequelae spread local acetic numbness pneumothorax side effects steroid medication portals regarding pain control. Patient understands wished to proceed. Patient return to clinic in approximate 4 weeks for follow-up. Patient was instructed as to return appointment as well as activity level and side effects to be aware of. Medication Injected: Med Injected: Under sterile prep and drape trigger point injections were carried out in the left superior and middle cervical paraspinous posture, left trapezius musculat ure, left supraspinatus musculature, infraspinatus musculature on the left, as well as a thoracic paraspinous musculature on the left. Negative aspiration each injection site using 25-gauge needle total of 8 cc 0.25% ropivacaine and 40 mg Depo-Medrol. Patient tolerated the procedure well and had no complications. Condition at Discharge: Condition at Discharge: Condition at discharge stable, patient tolerated the procedure well and had no complications. AMERICA ELAM MD Jun 17, 2020 12:29
--- NOTE | 2020-06-17 12:30 | PDOC4 ---
PROCEDURE Procedure Patient was consented for trigger point injections. Risk were discussed inc luding but not limited to bleeding infection possibility of intravascular injection sequelae spread local anesthetic and numbness pneumothorax side effects of steroid medication and poor results regarding pain control. Patient understands wished to proceed. Under sterile prep and drape trigger point injections were carried out in the left superior and middle cervical paraspinous posture, left trapezius musculature, left supraspinatus musculature, infraspinatus musculature on the left, as well as a thoracic paraspinous musculature on the left. Negative aspiration each injection site using 25-gauge needle total of 8 cc 0.25% ropiv acaine and 40 mg Depo-Medrol. Patient tolerated the procedure well and had no complications. AMERICA ELAM MD Jun 17, 2020 12:30
== END | disposition home or self-care (01) ==
LOC: PNCL 08:27
PROVIDERS: ATTEND Anesthesiology
DX: M50.10 Cervical disc disorder with radiculopathy, unspecified cervical region (principal); M48.02 Spinal stenosis, cervical region; M79.10 Myalgia, unspecified site; M25.512 Pain in left shoulder; E78.00 Pure hypercholesterolemia, unspecified; I10 Essential (primary) hypertension; J45.909 Unspecified asthma, uncomplicated; E66.9 Obesity, unspecified; K21.9 Gastro-esophageal reflux disease without esophagitis; M19.90 Unspecified osteoarthritis, unspecified site; E11.9 Type 2 diabetes mellitus without complications; Z87.440 Personal history of urinary (tract) infections; Z98.890 Other specified postprocedural states; Z79.899 Other long term (current) drug therapy; Z88.8 Allergy status to other drugs, medicaments and biological substances
CPT/HCPCS: 20553; J1030; J3490

== ENCOUNTER 2020-09-16 20:41 | Emergency (ER) | payer BC ==
[~2020-09-16] VITALS: Ht 170.2 cm; Wt 72.7 kg
[~2020-09-16 20:41] MED LIST changes: -BUPIVACAINE MPF 0.25% 10 ML VIAL. ONE; -methylPREDNISolone ACETATE 40 MG/ML VIAL. ONE
--- NOTE | 2020-09-16 20:56 | PHYS DOC ---
Past Medical History Past Medical History: Asthma, Diabetes-Type II, High Cholesterol, Hypertension, UTI, Other Additional Past Medical Histor: interstitial cystitis Past Surgical History: Appendectomy, Hysterectomy, Tonsillectomy, Other Additional Past Surgical Histo: Bowel resection Smoking Status: Never Smoker Alcohol Use: None Drug Use: None General Adult HPI: HPI: Patient is a pleasant 64-year-old female presenting via EMS for fall. Reports this happened just prior to arrival. Patient was at home with family members present and numerous puppies including a 70 pound Labrador. The puppies started playing aggressively which concerned patient so she tried to intervene and was subsequently knocked over towards her left side. Patient reports falling to her left into the wall and subsequently fell forward hitting her left knee and then subsequently catching the rest of her body with bilateral outstretched hands. Did not hit head, no loss of consciousness. Reported immediate anterior knee pain. She is on no blood thinners. She had no prodromal symptoms, has been at baseline health with only change in home medications being blood pressure related due to purposeful weight loss and ongoing issues with blood pressure medication regiment. Patient was evaluated by family members who observed entirety of the fall and there was concerned due to swelling of the left anterior knee prompting them to call EMS for transfer to our facility for evaluation Review of Systems: Review of Systems: Fourteen body systems of review of systems have been reviewed. See HPI for pertinent positives and negative responses, other grant all other systems are negative, non-pertinent or non-contributory constitutional: Denies fever or chills. [] Heart Score: C/O Chest Pain: No HEART Score for Chest Pain: HEART Score for Chest Pain Response (Comments) Value History Slighlty/Non-Suspicious 0 ECG Normal 0 Age >45 - < 65 1 Risk Factors 1 or 2 Risk Factors 1 Total 2 Risk Factors: Risk Factors: DM, Current or recent (<one month) smoker, HTN, HLP, family history of CAD, obesity. Risk Scores: Score 0 - 3: 2.5% MACE over next 6 weeks - Discharge Home Score 4 - 6: 20.3% MACE over next 6 weeks - Admit for Clinical Observation Score 7 - 10: 72.7% MACE over next 6 weeks - Early Invasive Strategies Allergies: Allergies: Allergies Coded Allergies Type Severity Reaction Last Updated Verified I S O L A T I O N *CONTACT* Allergy Unknown 11/5/15 Yes No Known Medication Allergies Allergy Unknown 03/06/15 Yes Physical Exam: PE: Constitutional: Pt is oriented to person, place, and time. Pt appears well-developed and well- nourished. HEENT: Head: Normocephalic and atraumatic. TMs clear, no hemotympanum Conjunctivae and EOM are normal. Pupils are equal, round, and reactive to light. Oropharynx is clear and moist. No hematomas or lacerations or abrasions to face or scalp OP clear, no blood, no malocclusion, dentition intact Nares clear, no nasal septal hematoma Midface stable Neck: C-spine midline nontender, no step-offs Cardiovascular: Normal rate, regular rhythm and normal heart sounds. Pulmonary/Chest: Effort normal and breath sounds normal. No respiratory distress. No wheezes. CTA bilaterally Abdominal: Soft. Bowel sounds are normal. Pt exhibits no distension. There is no tenderness. Musculoskeletal: No bony tenderness to extremities, no deformities, full ROM extremities. Patient does have focal pain and soft tissue swelling to left anterior knee veronica und patella with no obvious joint laxity present on numerous testing such as anterior and posterior Mary, no medial or lateral joint line tenderness, no fibular head abnormalities or pain with palpation Chest wall stable Pelvis stable and non-tender No vertebral TTP and spine without stepoffs Neurological: Pt is alert and oriented to person, place, and time. Moving all extremities willfully, able to wiggle all fingers and toes Alert and oriented x 3 Motor and sensory function intact Skin: Skin is warm and dry. No abrasions, no lacerations Psychiatric: Behavior is appropriate for situation Current Patient Data: Vital Signs: Vital Signs Date Time Temp Pulse Resp B/P (MAP) Pulse Ox O2 Delivery O2 Flow Rate FiO2 09/16/20 20:43 98.6 82 22 176/69 (104) 100 Room Air 98.6 Vital Signs Date Time Temp Pulse Resp B/P (MAP) Pulse Ox O2 Delivery O2 Flow Rate FiO2 09/16/20 21:12 80 18 154/68 (96) 97 Room Air 09/16/20 20:43 98.6 98.6 EKG: EKG: EKG ordered and interpreted by myself at 2101 hrs. as sinus rhythm at 77 bpm, unremarkable intervals, no axis deviation, no acute ischemic findings, no STEMI Radiology/Procedures: Radiology/Procedures: Exam: Left knee 4 views INDICATION: Fall to anterior left knee TECHNIQUE: Frontal, lateral, oblique and sunrise views of the left knee Comparisons: None FINDINGS: Mild osteopenia. There is soft tissue swelling overlying the patella. Small suprapatellar effusion. No acute or healed fractures. Mild tricompartmental os teoarthritic change greatest in the medial compartment. IMPRESSION: No acute osseous abnormality. Electronically signed by: Purvi Zapien MD (09/16/2020 9:55 PM) [facility] Course & Med Decision Making: Course & Med Decision Making ABCs unremarkable. Vitals, HPI and physical exam nonconcerning for emergent or surgical findings EKG and radiograph of left knee unremarkable for acute disease. There is a mild anterior left knee effusion due to fall that is likely self-limiting in nature and should respond to supportive care practices Patient has good access to primary care physician, can be seen within upcoming 7 days for repeat evaluation. Continued supportive care advised for most likely diagnosis of contusion from mechanical fall induced by puppies Strict return precautions were discussed with good understanding by patient. I disclose this might be an acute presentation more concerning pathology but given HPI and physical exam findings, no indication for further work-up at present Dragon Disclaimer: Petra Disclaimer: This electronic medical record was generated, in whole or in part, using a voice recognition dictation system. Departure Departure Impression: Primary Impression: Accident due to mechanical fall without injury Additional Impression: Contusion of left patella Disposition: 01 HOME / SELF CARE / HOMELESS Condition: STABLE Referrals: PACO STILES PHOTOCOPY OPERATOR (PCP) Patient Instructions: Contusion, Knee Exercises, Generic, SportsMed, RICE - Routine Care for Injuries Additional Instructions: It is likely that you have experienced a contusion to your left patella that is causing you pain. The best treatment for this injury is continued range of motion to prevent a frozen joint. A Rest, Ice, Compression, Elevation (RICE) strategy may also be helpful in the acute phase. As discussed, please try and ice your knee at least 3 times daily for >10 minutes each session. You can utilize Tylenol as needed for pain control. Please contact your primary care doctor first thing in the morning to review ER visit this evening and discuss need for close outpatient follow-up. If any concerning signs or symptoms present prior to outpatient follow-up please do not hesitate to come back for repeat evaluation. It was a pleasure to take care of you and I wish you a speedy recovery VENKATA GUERRERO DO September 16, 2020 20:56
[2020-09-16] MEDS ORDERED: ACETAMINOPHEN 325 MG TABLET. PO ONE (21:00)
--- NOTE | 2020-09-16 21:36 | EKG ---
[facility] [address] [place] [address] Test Date: 2020-09-16 Test Time: 20:55:23 Pat Name: BILLY SON Department: Room: Gender: F [employer]: : [id number] Requested By: VENKATA GUERRERO Order Number: [id number] Reading MD: Measurements Intervals [place] Rate: 77 P: 62 IN: 140 QRS: 41 QRSD: 76 T: 45 QT: 390 QTc: 443 Interpretive Statements SINUS RHYTHM NORMAL ECG RI6.02 No previous ECG available for comparison
--- NOTE | 2020-09-16 21:58 | RAD ---
Exam: Left knee 4 views INDICATION: Fall to anterior left knee TECHNIQUE: Frontal, lateral, oblique and sunrise views of the left knee Comparisons: None FINDINGS: Mild osteopenia. There is soft tissue swelling overlying the patella. Small suprapatellar effusion. N o acute or healed fractures. Mild tricompartmental osteoarthritic change greatest in the medial gabriela rtment. IMPRESSION: No acute osseous abnormality. Electronically signed by: Purvi Zapien MD (09/16/2020 9:55 PM) [facility]
[2020-09-16 22:12] VITALS: BP 148/56
== END 2020-09-16 22:25 | disposition home or self-care (01) ==
LOC: ER 20:41
DX: S80.02XA Contusion of left knee, initial encounter (principal); J45.909 Unspecified asthma, uncomplicated; E11.9 Type 2 diabetes mellitus without complications; E78.00 Pure hypercholesterolemia, unspecified; I10 Essential (primary) hypertension; Z87.440 Personal history of urinary (tract) infections; Z88.8 Allergy status to other drugs, medicaments and biological substances; W18.09XA Striking against other object with subsequent fall, initial encounter; Y93.89 Activity, other specified; Y92.89 Other specified places as the place of occurrence of the external cause; Y99.8 Other external cause status
CPT/HCPCS: 73564; 93005; 99283

== ENCOUNTER 2021-03-29 05:39 | Emergency (ER) | payer BC, OTHER ==
[~2021-03-29] VITALS: Ht 170.2 cm; Wt 90.9 kg
[~2021-03-29 05:39] MED LIST changes: +ATOR40TA59 PO; +GABA300C9 PO; +HYDR-2761 PO; +INSU100I32 SQ; +LISI40TA6 PO; +METO-239 PO; -OMEP40CA45 PO; +OMEP40CA7 PO; +PARO20TA3 PO; +PRED-220 PO; +TIZA-75 PO; -TIZA4TAB2 PO
[2021-03-29] MEDS ORDERED: KETOROLAC 30 MG/ML VIAL. IM ONE (06:30)
--- NOTE | 2021-03-29 06:57 | PHYS DOC ---
Past Medical History Past Medical History: Diabetes-Type II, Hypertension, Sciatica Additional Past Medical Histor: NEUROPATHY, "BROKEN RIBS" Past Surgical History: Hysterectomy, Tonsillectomy, Other Additional Past Surgical Histo: COLON RESECTION, L WRIST Smoking Status: Never Smoker Alcohol Use: None Drug Use: None General Adult EDM: Chief Complaint: UPPER EXTREMITY INJURY HPI: HPI: 65 year old female presents with right wrist pain. The pain started when she tripped over her dog at 2330 last night and tried to catch herself with her right arm. She did not hear an audible pop, but experienced instant pain after falling. She described her pain as a sharp 10/10 that is worse with movement and touching the wrist. She tool Tylenol this morning before coming to the ED, which has helped "slightly". Icing the joint helps as well. There is radiation of the pain up her right arm and into her right hand which is worse with movement. She feels that she also hit the right side of her head during the fall. She had a mild headache. Patient is unsure regarding any loss of consciousness. Patient reports she does not take any blood thinners. Review of Systems: Review of Systems: Constitutional: Denies fever or chills Eyes: Denies redness or eye pain HENT: Denies nasal congestion or sore throat Respiratory: Denies cough or shortness of breath Cardiovascular: Denies chest pain or palpitations GI: Denies abdominal pain, nausea, or vomiting : Denies dysuria or hematuria Musculoskeletal: Reports chronic back pain and acute right wrist pain Integument: Denies rash or skin lesions or laceration Neurologic: Denies headache, focal weakness or sensory changes Complete systems were reviewed and found to be within normal limits, except as documented in this note. Heart Score: C/O Chest Pain: N/A Current Medications: Current Medications Medications (Trade) Dose Ordered Sig/[facility] Start Time Stop Time Status Last Admin Dose Admin Ketorolac Tromethamine (Toradol 30mg Vial) 30 mg 1X ONCE 03/29/21 06:30 03/29/21 06:31 DC Allergies: Allergies: Allergies Coded Allergies Type Severity Reaction Last Updated Verified No Known Drug Allergies 11/22/20 No Physical Exam: PE: Constitutional: Well developed, well nourished, mild distress from wrist pain, non-toxic appearance HENT: Normocephalic, 2cm contused area with ecchymosis over her right congregation that is tender to palpation. Eyes: PERRL, EOMI, conjunctiva normal, no discharge Neck: Normal range of motion, no midline tenderness, supple Lungs & Thorax: No respiratory distress, equal chest rise and fall Abdomen: Soft, no tenderness; pelvis stable and nontender Skin: Warm, dry, no rash Extremities: There is swelling and ecchymosis over her right distal ulna about 3 cm from the ulnar head that is tender to palpation. There is additional swelling and ecchymosis over her distal radius and radial carpal bones that is tender to palpation. Limited ROM of right wrist in all movements. There is no abnormality in appearance, tenderness, or range of motion of the left wrist. Neurologic: Alert and oriented X 3, normal motor function, normal sensation, no focal deficits noted Psychologic: Affect normal, judgment normal Current Patient Data: Vital Signs: Vital Signs Date Time Temp Pulse Resp B/P (MAP) Pulse Ox O2 Delivery O2 Flow Rate FiO2 03/29/21 05:55 98.4 82 16 219/91 (133) 100 Room Air 98.4 EKG: EKG: [] Radiology/Procedures: Radiology/Procedures: EXAM: Head and cervical spine CT without contrast. HISTORY: Trauma. TECHNIQUE: Computed tomographic images of the head and cervical spine were obtained without contrast. *One or more of the following individualized dose reduction techniques were utilized for this examination: 1. Automated exposure control. 2. Adjustment of the mA and/or kV according to patient size. 3. Use of iterative reconstruction technique. COMPARISON: None. FINDINGS: Head: There is no intracranial hemorrhage. There is no mass effect or midline shift. There is no hydrocephalus. There is decreased attenuation within the cerebral white matter. There is cerebral volume loss. The orbits, paranasal sinuses mastoid air cells are unremarkable. There is no suspicious calvarial lesion. Cervical spine: There is mild cervical curvature and reversal cervical lordosis. There is degenerative endplate remodeling with disc space narrowing and osteophytosis primarily at C5-C6. There is multilevel facet arthropathy. There is no acute fracture. There is no suspicious osseous lesion. There is calcified atherosclerotic plaque involving the carotid bifurcations. There is a 1.7 cm heterogeneous hypodense lesion with partial peripheral calcification within the left thyroid lobe. The lung apices are unremarkable. The combination of degenerative changes results in mild bilateral foraminal stenosis at C3-C4 and moderate to severe right and severe left foraminal and mild central canal stenosis at C5-C6. IMPRESSION: 1. No acute intracranial finding or evidence of acute cervical spine trauma. 2. Bilateral cerebral white matter changes, likely due to chronic small vessel disease. 3. Degenerative change involving the cervical spine, described in detail above. This results in stenosis as at the aforementioned levels. 4. 1.7 cm left thyroid nodule. This can be better assessed with a thyroid sonogram. Electronically signed by: Olga Lidia Gonzales MD (03/29/2021 7:11 AM) [id number][] EXAM: Right wrist, 3 views; right elbow, 3 views. HISTORY: Pain. COMPARISON: None. FINDINGS: Right wrist: 3 views the right wrist are obtained. There is a comminuted displaced intra-articular fracture of the distal radial metaphysis. There is also a nondisplaced fracture of the distal ulnar metaphysis and ulnar styloid. There is moderate degenerative spurring involving the first carpometacarpal joint due to osteoarthritis. There is soft tissue swelling. Right elbow: 3 views of the right elbow are obtained. There is no fracture, dislocation or subluxation. There is no elbow effusion. There is a corticated ossicle along the anterior trochlea likely due to a chronic fragmented spur or sequela of remote injury. IMPRESSION: 1. Comminuted intra-articular fracture of the distal radial metaphysis. 2. Mildly displaced fracture of the distal ulnar metaphysis and ulnar styloid. Electronically signed by: Olga Lidia Gonzales MD (03/29/2021 7:24 AM) [id number] Course & Med Decision Making: Course & Med Decision Making Pertinent Imaging studies reviewed. (See chart for details) 65 year old female presented to the ED with right wrist pain after fall last night. Appropriate imaging with a right wrist and elbow x-ray was acquired and showed a comminuted intra-articular fracture of the distal radial metaphysis and a mildly displaced fracture of the distal ulnar metaphysis and ulnar styloid. She hit her head during her fall and does compain of headache and neck discomfort. Denies blood thinners. Unsure regarding any LOC. Head/cervical spine CT was acquired and did not reveal any acute hemorrhage or fracture. Analgesia was addressed with Toradol. A splint was placed and sling provided for her wrist fractures and she was instructed to follow-up with orthopedics for further evaluation/management. Of note: CT imaging did note nonspecific thyroid nodule with recommendation for outpatient ultrasound evaluation. Results discussed with patient and a copy of CT report given to patient to provide to her PCP for further management. Patient stable for discharge with outpatient follow-up with PCP/orthopedics. Orthopedic referral provided. Discussed findings and plan with patient, who acknowledges understanding and agreement. Petra Disclaimer: Petra Disclaimer: This electronic medical record was generated, in whole or in part, using a voice recognition dictation system. Splinting Splinting : Location: Right wrist Hand-Made Type: orthoglass Splint: sugar-tong Pre-Proc Neuro Vasc Exam: normal Post-Proc Neuro Vasc Exam: normal, unchanged from pre-exam Departure Departure Impression: Primary Impression: Distal radius fracture, right Qualified Codes: S52.571A - Other intraarticular fracture of lower end of right radius, initial encounter for closed fracture Additional Impressions: Distal end of ulna fracture, closed Qualified Codes: S52.601A - Unspecified fracture of lower end of right ulna, initial encounter for closed fracture Fall Qualified Codes: W19.XXXA - Unspecified fall, initial encounter Thyroid nodule Disposition: HOME / SELF CARE / HOMELESS Condition: STABLE Referrals: PACO STILES NP (PCP) ROBERT HASSAN Jr. DO Patient Instructions: Arm Sling Use, [id number], Fall Prevention and Home Saf ety, [id number], Incidental Abnormal Radiological Finding, Splint Care, [id number]-[id number], Wrist Fracture, [id number] Additional Instructions: Ice area of discomfort 20 minutes on then leave off next 20 minutes. Repeat several times daily for the next 2 days. Make sure to take arm out of arm sling and perform shoulder circles 10 times in each direction at least 5 times daily to prevent a frozen shoulder. Please provide CT imaging to your family physician regarding further evaluation of your thyroid nodule. Scripts Hydrocodone Bit/Acetaminophen (HYDROCODONE-APAP 5-325 ) 1 Tab Tablet 0.5-1 TAB PO PRN Q6HRS PRN for PAIN, #14 TAB 0 Refills Prov: EVAN POSADAS DO 03/29/21 EVAN POSADAS DO Mar 29, 2021 06:57
--- NOTE | 2021-03-29 07:13 | RAD ---
EXAM: Head and cervical spine CT without contrast. HISTORY: Trauma. TECHNIQUE: Computed tomographic images of the head and cervical spine were obtained without contrast. *One or more of the following individualized dose reduction techniques were utilized for this examina tion: 1. Automated exposure control. 2. Adjustment of the mA and/or kV according to patient size. 3. Use of iterative reconstruction technique. COMPARISON: None. FINDINGS: Head: There is no intracranial hemorrhage. There is no mass effect or midline shift. There is no hydr ocephalus. There is decreased attenuation within the cerebral white matter. There is cerebral volume loss. The orbits, paranasal sinuses mastoid air cells are unremarkable. There is no suspicious calvar ial lesion. Cervical spine: There is mild cervical curvature and reversal cervical lordosis. There is degenerativ e endplate remodeling with disc space narrowing and osteophytosis primarily at C5-C6. There is multil evel facet arthropathy. There is no acute fracture. There is no suspicious osseous lesion. There is calcified atherosclerotic plaque involving the carotid bifurcations. There is a 1.7 cm heterogeneous hypodense lesion with par tial peripheral calcification within the left thyroid lobe. The lung apices are unremarkable. The combination of degenerative changes results in mild bilateral foraminal stenosis at C3-C4 and mod erate to severe right and severe left foraminal and mild central canal stenosis at C5-C6. IMPRESSION: 1. No acute intracranial finding or evidence of acute cervical spine trauma. 2. Bilateral cerebral white matter changes, likely due to chronic small vessel disease. 3. Degenerative change involving the cervical spine, described in detail above. This results in steno sis as at the aforementioned levels. 4. 1.7 cm left thyroid nodule. This can be better assessed with a thyroid sonogram. Electronically signed by: Olga Lidia Gonzales MD (03/29/2021 7:11 AM) [id number]
--- NOTE | 2021-03-29 07:26 | RAD ---
EXAM: Right wrist, 3 views; right elbow, 3 views. HISTORY: Pain. COMPARISON: None. FINDINGS: Right wrist: 3 views the right wrist are obtained. There is a comminuted displaced intra-articular fr acture of the distal radial metaphysis. There is also a nondisplaced fracture of the distal ulnar met aphysis and ulnar styloid. There is moderate degenerative spurring involving the first carpometacarpa l joint due to osteoarthritis. There is soft tissue swelling. Right elbow: 3 views of the right elbow are obtained. There is no fracture, dislocation or subluxatio n. There is no elbow effusion. There is a corticated ossicle along the anterior trochlea likely due t o a chronic fragmented spur or sequela of remote injury. IMPRESSION: 1. Comminuted intra-articular fracture of the distal radial metaphysis. 2. Mildly displaced fracture of the distal ulnar metaphysis and ulnar styloid. Electronically signed by: Olga Lidia Gonzales MD (03/29/2021 7:24 AM) [id number]
[2021-03-29] MEDS ORDERED: HYDR-2761 PO (07:52)
[2021-03-29 08:45] VITALS: BP 210/86
== END 2021-03-29 09:00 | disposition home or self-care (01) ==
LOC: MERGE 05:39 → ER 05:39
DX: S52.571A Other intraarticular fracture of lower end of right radius, initial encounter for closed fracture (principal); I10 Essential (primary) hypertension; E11.40 Type 2 diabetes mellitus with diabetic neuropathy, unspecified; E04.1 Nontoxic single thyroid nodule; W01.0XXA Fall on same level from slipping, tripping and stumbling without subsequent striking against object, initial encounter; Y93.89 Activity, other specified; Y99.8 Other external cause status; Y92.89 Other specified places as the place of occurrence of the external cause
CPT/HCPCS: 29125; 70450; 72125; 73080; 73110; 96372; 99284; A4565; J1885

== ENCOUNTER 2021-04-06 10:27 | Day surgery (SDC) | payer BC ==
[~2021-04-06] VITALS: Ht 170.2 cm; Wt 79.5 kg
[~2021-04-06 10:27] MED LIST changes: +BUPIVACAINE-EPI 0.25%-1:200000 MPF 30 ML VIAL. ONE; +HYDROmorphone 2 MG/ML VIAL IVP PRN; +IV RINGERS,LACTATED 1000ML 1,000 ML IV SCH; +MORPHINE SULFATE 2 MG/ML INJ. IVP PRN; +PROCHLORPERAZINE 10 MG/2 ML VIAL. IVP PRN; +fentaNYL PF VIAL 100 MCG/2 ML VIAL IVP PRN
[2021-04-06 11:25] VITALS: BP 173/88
[2021-04-06] MEDS ORDERED: INSULIN LISPRO 100 UNIT/ML 3ML VIAL for OP,RR ONLY. SQ PRN (11:45)
[2021-04-06] MEDS ORDERED: fentaNYL PF VIAL 100 MCG/2 ML VIAL ONE ×2 (11:47→13:22)
[2021-04-06] MEDS ORDERED: PROPOFOL 10 MG/ML (20ML) VIAL. IV ONE (11:47)
[2021-04-06] MEDS ORDERED: LIDOCAINE 2% PF 5 ML VIAL. ONE (11:47)
[2021-04-06] MEDS ORDERED: INSULIN LISPRO 100 UNIT/ML 3ML VIAL for OP,RR ONLY. SQ ONE (11:50)
[2021-04-06] MEDS ORDERED: OXYC1TAB19 PO (12:53)
--- NOTE | 2021-04-06 12:56 | DISCH ---
DISCHARGE INSTRUCTIONS Condition on Discharge Condition on Discharge: Stable Activity After Discharge Activity Instructions for Disc: Activity as tolerated, Avoid exertion Lifting Instructions after Dis: No heavy lifting, No pulling or pushing Driving Instructions after Dis: Do not drive today Weight Bearing Status after Di: Full weight bearing Diet after Discharge Diet after Discharge: Renal Non-Dialysis, Regular Diet Texture: Regular Liquid Texture: Thin Liquid Swallowing Supervision: None needed Wound Incision Care Wound/Incision Care: Ice to area for comfort, Keep wound elevated, Do not change dressing Checks after Discharge Checks after discharge: Check blood press - daily, Check blood sugar, ac/hs Follow-Up Follow up with: 10 to 14 days Treatment/Equipment after DC Adaptive Equipment Issued: None ROBERT HASSAN Jr. DO Apr 06, 2021 12:56
[2021-04-06] MEDS ORDERED: ONDANSETRON PF 4 MG/2 ML VIAL. ONE ×2 (13:22→14:21)
[2021-04-06] MEDS ORDERED: DEXAMETHASONE SOD PHOS 4 MG/ML VIAL ONE (13:22)
--- NOTE | 2021-04-06 13:51 | PDOC4 ---
OPERATIVE NOTE Date: Date: Apr 06, 2021 Pre-Op Diagnosis: Comminuted intra-articular fracture right distal radius Post-Op Diagnosis: Same Procedure Performed: ORIF right distal radius Surgeon: Estephania Anesthesia Type: General Blood Loss: 10 cc Specimans Obtained: None Findings: See dictation Complications: None ROBERT HASSAN Jr. DO Apr 06, 2021 13:51
--- NOTE | 2021-04-06 14:01 | OP ---
DATE OF SURGERY: 04/06/2021 PREOPERATIVE DIAGNOSIS: Comminuted intraarticular fracture, right distal radius. POSTOPERATIVE DIAGNOSIS: Comminuted intraarticular fracture, right distal radius. PROCEDURE: Open reduction and internal fixation, right distal radius. SURGEON: Jamshid Best Jr., DO [employer] MANAGER: Spencer Armando. ANESTHESIA: General. COMPLICATIONS: None. ESTIMATED BLOOD LOSS: 10 mL. DESCRIPTION OF PROCEDURE: The patient was taken to the operative suite, given a general anesthetic. Right upper extremity was then prepped and draped in a sterile fashion. After exsanguination, a tourniquet was inflated. Incision was made directly over the area of the radius through skin and subcutaneous tissues and a gentle lazy L-type incision. This was carefully taken down to the flexor carpi radialis, which was retracted appropriately with soft tissue structures. This brought us down after finger dissection down to the pronator quadratus, which was already somewhat torn, but was removed from the volar aspect of the radius. After this was reduced and held, a volar right distal radial plate was fixed to the volar aspect of the wrist using standard AO technique. All distal screws that were placed within the fracture fragments were noted to be locking screws were all nonlocking screws were used proximal to the fracture. After this was noted to be in satisfactory alignment in both AP and lateral projections, the wound was then thoroughly irrigated. Superficial tissues and skin was reapproximated. Sterile dressing was applied. The patient was then taken from the operative bed to the postoperative bed, taken to the PACU in stable condition. CARMEN DR: Terri TID: [id number]
[2021-04-06] MEDS ORDERED: PROCHLORPERAZINE 10 MG/2 ML VIAL. ONE (14:16)
[2021-04-06] MEDS ORDERED: MORPHINE SULFATE 2 MG/ML INJ. ONE (14:23)
[2021-04-06] MEDS ORDERED: diphenhydrAMINE 50 MG/ML VIAL ONE (14:29)
[2021-04-06] MEDS ORDERED: ONDANSETRON PF 4 MG/2 ML VIAL. IVP ONE (14:30)
[2021-04-06] MEDS ORDERED: diphenhydrAMINE 50 MG/ML VIAL IVP ONE (14:30)
[2021-04-06] MEDS ORDERED: oxyCODONE/APAP 7.5/325 1 TAB TABLET PO ONE (15:00)
[2021-04-06 15:36] VITALS: BP 139/74
== END 2021-04-06 16:30 | disposition home or self-care (01) ==
LOC: SURG 10:27
PROVIDERS: ATTEND Orthopaedic Surgery
DX: S52.571A Other intraarticular fracture of lower end of right radius, initial encounter for closed fracture (principal); I10 Essential (primary) hypertension; E78.00 Pure hypercholesterolemia, unspecified; J45.909 Unspecified asthma, uncomplicated; E66.9 Obesity, unspecified; K21.9 Gastro-esophageal reflux disease without esophagitis; E11.9 Type 2 diabetes mellitus without complications; M19.90 Unspecified osteoarthritis, unspecified site; G47.30 Sleep apnea, unspecified; Z79.4 Long term (current) use of insulin; Z79.899 Other long term (current) drug therapy; Z90.710 Acquired absence of both cervix and uterus; Z98.890 Other specified postprocedural states; X58.XXXA Exposure to other specified factors, initial encounter; Y93.89 Activity, other specified; Y92.89 Other specified places as the place of occurrence of the external cause; Y99.8 Other external cause status
CPT/HCPCS: 25609; 82962; A4364; A4565; A4930; A6402; A6449; C1713; J0690; J0780; J1100; J1200; J1815; J2270; J2405; J2704; J3010; J3490; 76000; A4452; A4657

== ENCOUNTER → 2021-06-29 | Outpatient (CLI) | payer BC ==
[~2021-06-29] MED LIST changes: -BUPIVACAINE-EPI 0.25%-1:200000 MPF 30 ML VIAL. ONE; -HYDROmorphone 2 MG/ML VIAL IVP PRN; -IV RINGERS,LACTATED 1000ML 1,000 ML IV SCH; -MORPHINE SULFATE 2 MG/ML INJ. IVP PRN; +OXYC1TAB19 PO; -PROCHLORPERAZINE 10 MG/2 ML VIAL. IVP PRN; -fentaNYL PF VIAL 100 MCG/2 ML VIAL IVP PRN
--- NOTE | 2021-06-29 18:00 | RAD ---
US THYROID History: Left thyroid nodule seen on CT scan. Comparison: CT cervical spine 03/29/2021 Technique: Multiple grayscale and color Doppler images of the thyroid gland were obtained. Findings: Right thyroid lobe: 4.8 x 1.5 x 1.3 cm. Left thyroid lobe: 5.1 x 1.9 x 1.9 cm. Isthmus: 0.2 cm. Multiple small anechoic right thyroid nodules compatible with colloid cysts. Large heterogeneous left thyroid nodule. The uninvolved thyroid parenchyma is relatively homogeneous. Nodule #1. Size: 1.7 x 1.5 x 1.4 cm Location: Left mid. Characteristics: Solid and cystic, hypoechoic, wider than tall, smooth margin, peripheral and coarse calcifications ACR TI-RADS risk category: TR4 (4-6 points): FNA if 1.5 cm, follow-up if 1-1.4 cm in 1, 2, 3, and 5 y ears. Disposition: Recommend fine-needle aspiration. Nodule #2. Size: 0.7 x 0.4 x 0.8 cm Location: Left lower. Characteristics: Solid and cystic, hypoechoic, wider than tall, smooth margin, macrocalcifications. ACR TI-RADS risk category: TR4 (4-6 points): FNA if 1.5 cm, follow-up if 1-1.4 cm in 1, 2, 3, and 5 y ears. Disposition: No follow-up required. IMPRESSION: 1. Multinodular thyroid with moderately suspicious 1.7 cm left mid thyroid nodule for which fine-nee dle aspiration is recommended. ACR Thyroid Imaging, Reporting And Data System (TI-RADS): White Paper Of The ACR TI-RADS Committee. J ournal of the [employer], volume 14, issue 5, pages 587-595 (August 2016). Electronically signed by: Lane Yoder MD (06/29/2021 5:58 PM) [id number]
== END ==
LOC: US 13:59
PROVIDERS: ATTEND Clinical Nurse Specialist Family Health
DX: E04.2 Nontoxic multinodular goiter (principal)
CPT/HCPCS: 76536

== ENCOUNTER → 2021-07-07 | Outpatient (CLI) | payer BC ==
[~2021-07-07] MED LIST changes: +LIDOCAINE 1% Multi-Dose 20 ML VIAL. INJ ONE
--- NOTE | 2021-07-07 13:28 | RAD ---
US FNA BIOPSY 1ST LESION Clinical Indication: Reason: Left Mid Thyroid Biopsy / Spl. Instructions: / History: Comparison: Thyroid ultrasound 06/29/2021. Procedure: The risks, alternatives, and benefits of the procedure are discussed with the patient. Written inform ed consent is obtained. A time out procedure is performed. Neck prepped and draped in normal sterile fashion. 1% lidocaine was injected into the skin and soft tissue along route to the nodule of the thyroid. 4 s eparate passes were made with a 22-gauge needle. To and fro movement of the needle was performed in t he nodule while aspiration was applied. Hemostasis is achieved. The patient tolerated the procedure w ell. There is no immediate complication. IMPRESSION: Ultrasound guided fine needle aspiration of a mid left thyroid nodule. Electronically signed by: Hair Lopez MD (07/07/2021 1:25 PM) [id number]
== END | disposition home or self-care (01) ==
LOC: US 12:06
PROVIDERS: ATTEND Clinical Nurse Specialist Family Health
DX: E04.1 Nontoxic single thyroid nodule (principal); I10 Essential (primary) hypertension; E78.00 Pure hypercholesterolemia, unspecified; E66.9 Obesity, unspecified; K21.9 Gastro-esophageal reflux disease without esophagitis; E11.9 Type 2 diabetes mellitus without complications; M19.90 Unspecified osteoarthritis, unspecified site; J45.909 Unspecified asthma, uncomplicated; G47.30 Sleep apnea, unspecified; Z87.440 Personal history of urinary (tract) infections; Z90.710 Acquired absence of both cervix and uterus; Z98.890 Other specified postprocedural states; Z79.899 Other long term (current) drug therapy; Z79.4 Long term (current) use of insulin
CPT/HCPCS: 10005; C1819

== ENCOUNTER → 2021-08-04 | Outpatient (CLI) | payer BC ==
[~2021-08-04] MED LIST changes: -LIDOCAINE 1% Multi-Dose 20 ML VIAL. INJ ONE
--- NOTE | 2021-08-04 16:42 | RAD ---
Bilateral digital screening 2-D and 3-D (tomosynthesis) mammogram: Reason for examination: Routine screening. Comparison is made to previous mammogram from 06/06/2019. Bilateral mammograms in CC and oblique projections were obtained with 2-D imaging and 3-D tomosynthes is imaging and reviewed on the workstation. Interpretation was made with the benefit of CAD. Findings: Breast density: Category C. The breasts are heterogeneously dense, which may obscure small masses. There are no suspicious masses, malignant appearing calcifications or architectural distortion. Impression: No evidence of malignancy. ASSESSMENT: BI-RADS 1. Negative. Recommendations: Routine screening mammograms. This patient's information has been entered into a reminder system for the patient to be notified wit h the results of her examination and a target date for the next mammogram. Your patient's mammogram demonstrates that she has dense breast tissue (breast density category C or D), which could hide abnormalities, and if she has other risk factors for breast cancer that have bee n identified, she might benefit from supplemental screening tests that may be suggested by you as her ordering physician. Dense breast tissue, in and of itself, is a relatively common condition. Therefo re, this information is not provided to cause undue concern, but rather to raise your awareness and t o promote discussion with your patient regarding the presence of other risk factors, in addition to d ense breast tissue. Electronically signed by: Anabelle Cavazos MD (08/04/2021 4:39 PM) [id number]
== END ==
LOC: MAMMO 08:08
DX: Z12.31 Encounter for screening mammogram for malignant neoplasm of breast (principal)
CPT/HCPCS: 77063; 77067